=== PATIENT | male | born 1985 | race Caucasian/White ===

== ENCOUNTER 2017-10-27 16:59 | Emergency (ER) | payer MEDICAID, OTHER ==
[2017-10-27] MEDS: KETOROLAC 60 MG INJ IM (19:11)
[2017-10-27] MEDS: HYDROCODONE/APAP (5/325) TAB PO (19:12)
== END 2017-10-27 20:21 | disposition home or self-care (01) ==
LOC: FTE 16:59
DX: M54.42 Lumbago with sciatica, left side (principal)
CPT/HCPCS: 72100; 96372; 99284-25